=== PATIENT | male | born 1980 | race Asian ===

== ENCOUNTER 2018-05-30 02:47 | Emergency (ER) | payer OTHER ==
[~2018-05-30] VITALS: Ht 182.9 cm; Wt 78.8 kg
[2018-05-30 04:33] VITALS: BP 134/84
== END 2018-05-30 04:35 | disposition home or self-care (01) ==
LOC: ER 03:04
DX: B35.3 Tinea pedis (principal); F17.200 Nicotine dependence, unspecified, uncomplicated
CPT/HCPCS: 99283